=== PATIENT | male | born 1955 | race Caucasian/White ===

== ENCOUNTER 2018-08-05 00:12 | Inpatient (IN) | payer BC ==
[2014-06-30 09:50] VITALS: Ht 185.4 cm; Wt 95.3 kg
[2018-08-04 14:32] LABS: INR 0.96
[2018-08-05] VITALS (13 sets, daily range): BP systolic 108–150; BP diastolic 69–99
[~2018-08-05] VITALS: Ht 185.4 cm; Wt 95.3 kg
[~2018-08-05 00:12] MED LIST: ASPI-757 PO; IBUP200C74 PO; LISI-353 PO
--- NOTE | 2018-08-05 07:34 | LEVENE H&P ---
DATE OF ADMISSION: August 05, 2018 IDENTIFICATION/CHIEF COMPLAINT The patient is a 62-year-old gentleman with a chief complaint of right knee pain. HISTORY OF PRESENT ILLNESS The patient has a long standing history of knee arthritis, progressively painful and debilitating, refractory to conservative care. Surgery is indicated to relieve symptoms after failure of nonoperative measures. PAST SURGICAL HISTORY Contralateral knee replacement. ALLERGIES No known drug allergies. CURRENT MEDICATIONS Lisinopril 50 mg p.o. q day. FAMILY HISTORY Non-contributory. SOCIAL HISTORY Negative for tobacco use, drinks alcohol about 4 days per week on a social basis, denies abuse. REVIEW OF SYSTEMS Negative. PHYSICAL EXAMINATION GENERAL: This is a healthy male. HEENT: Normocephalic, atraumatic. Extraocular muscles intact. NECK: Supple, non-tender. LUNGS: Clear to auscultation bilaterally. HEART: Regular rate and rhythm. ABDOMEN: Benign. BACK: Non-tender without deformity. ORTHOPEDIC EXAMINATION The right knee has crepitus noted. He has an effusion present. Gross stability is good. He is stiff at end range. Extensor function is intact. Skin condition is good. Calf is nontender. Neurovascular function is intact. RADIOGRAPHS Demonstrate endstage knee arthritis. ASSESSMENT Right knee endstage degenerative joint disease, progressively painful and debilitating, refractory to conservative care. PLAN Per patient request, we are going to proceed with total knee arthroplasty. The nature of the procedure, the risks, benefits, the anticipated rehabilitative course were reviewed. Risks include but are not limited to , major medical or anesthetic complication, infection, neurovascular injury, blood transfusion, stiffness, scarring, fracture, tendon rupture, instability, implant loosening, migration or failure, need for additional surgery and other unforeseen. He understands and wishes to proceed. A signed permit is placed in the chart. No guarantees are given or implied. J[facility] MEDICAL CENTERLuciano
[2018-08-05] MEDS ORDERED: cloNIDine EPIDUR INJ 100MCG/ML 40 MCG, ROPIVACAINE 0.5% 20 ML VIAL 25 ML, EPINEPHrine H... INJ ONE (10:00)
[2018-08-05] MEDS ORDERED: ceFAZolin(*) 2GM/D5W 50ML 50 ML IVPB ONE (10:00)
[2018-08-05] MEDS ORDERED: BACITRACIN 50000 UNIT/VIAL 100,000 UNIT in NS 0.9% 3000 ML IRRIGATION BAG 3,000 ML IR ONE (10:00)
[2018-08-05] MEDS ORDERED: MIDAZOLAM 2 MG/2 ML VIAL IVP PRN (10:00)
[2018-08-05] MEDS ORDERED: LIDOCAINE/SOD BICARB 8.4% SYR ID ONE (10:00)
[2018-08-05] MEDS ORDERED: TRANEXAMIC AC 1000 MG/10ML SDV 1,000 MG in DEXTROSE 5% 50 ML BAG 50 ML IV ONE (10:00)
[2018-08-05] MEDS ORDERED: NORMOSOL R SOLN(*) 1000 ML BAG 1,000 ML IV PRN ×2 (10:00→18:45)
[2018-08-05] MEDS ORDERED: FAMOTIDINE 20 MG TAB PO ONE (10:00)
[2018-08-05] MEDS ORDERED: ACETAMINOPHEN 500 MG TAB PO ONE (10:00)
[2018-08-05] MEDS ORDERED: PREGABALIN 150 MG CAPSULE PO ONE (10:00)
[2018-08-05] MEDS ORDERED: CELECOXIB 200 MG CAP PO ONE (10:00)
[2018-08-05] MEDS ORDERED: DEXAMETHASONE SOD 4 MG/ML VIAL ONE (13:22)
[2018-08-05] MEDS ORDERED: fentaNYL CITR 100 MCG/2 ML AMP ONE (13:22)
[2018-08-05] MEDS ORDERED: PROPOFOL EMUL(*) 10MG/ML 20 ML 20 ML ONE (13:22)
[2018-08-05] MEDS ORDERED: ONDANSETRON 4 MG/2 ML VIAL ONE (13:22)
[2018-08-05] MEDS ORDERED: LIDOCAINE MPF 1% 5 ML VIAL ONE (13:22)
[2018-08-05] MEDS ORDERED: KETAMINE HCL 200 MG/20 ML MDV ONE (13:27)
[2018-08-05] MEDS ORDERED: LACTATED RINGER 3000 ML BAG IR ONE (16:54)
--- NOTE | 2018-08-05 17:32 | RADIOLOGY IMAGING REPORT ---
FACILITY: [facility] PATIENT NAME: Garrett Camilo : 1955 MR: [id number] V: [id number] EXAM DATE: ORDERING PHYSICIAN: SULEMA ABREU TECHNOLOGIST: [place] [facility] [place] Garrett Camilo : 1955 Visit/Account:[id number] Date of Sevice: 08/05/2018 Examination: KNEE LIMITED RIGHT Comparison: None. History: Post right knee arthroplasty. Findings: Normal postoperative alignment of the right total knee arthroplasty. No periprosthetic frac ture. Expected postoperative change in the soft tissues. IMPRESSION: Expected postoperative appearance of the right total knee arthroplasty. Report Dictated By: Vicente Eddy MD at 08/05/2018 5:28 PM Report E-Signed By: Vicente Eddy MD at 08/05/2018 5:29 PM WSN:[id number]
[2018-08-05] MEDS ORDERED: APAP/HYDROCODONE 325/7.5 TAB ONE (18:16)
[2018-08-05] MEDS ORDERED: APAP/HYDROCODONE 325/7.5 TAB PO PRN (18:45)
[2018-08-05] MEDS ORDERED: ACETAMINOPHEN 325 MG TAB PO PRN (18:45)
[2018-08-05] MEDS ORDERED: DIAZEPAM 5 MG TAB PO PRN (18:45)
[2018-08-05] MEDS ORDERED: MAGNESIUM HYDROXIDE* 30ML UDCP PO PRN (18:45)
[2018-08-05] MEDS ORDERED: FLUSH 10 ML SYR IVP PRN (18:45)
[2018-08-05] MEDS ORDERED: BENZOCAINE/MENTHOL 1 EACH LOZG PO PRN (18:45)
[2018-08-05] MEDS ORDERED: PROMETHAZINE 25 MG/ML 1 ML AMP IVP PRN (18:45)
[2018-08-05] MEDS ORDERED: BISACODYL 10 MG SUPP PR PRN (18:45)
[2018-08-05] MEDS ORDERED: diphenhydrAMINE 25 MG CAP PO PRN (18:45)
[2018-08-05] MEDS ORDERED: ZOLPIDEM TARTRATE 5 MG TAB PO PRN (18:45)
[2018-08-05] MEDS ORDERED: diphenhydrAMINE 50 MG/ML VIAL IVP PRN (18:45)
--- NOTE | 2018-08-05 20:00 | Hospitalist Progress Note ---
Subjective Progress Notes Subjective No CV/pulmonary issues. 1800cc of crystalloid, TXA, dexamethasone and ephedrine given intra-op. Physical Exam Vital Signs Date Time Temp Pulse Resp B/P (MAP) Pulse Ox O2 Delivery O2 Flow Rate FiO2 08/05/18 18:34 97.7 81 20 149/93 (111) 96 Nasal Cannula 2.0 General Appearance: Alert, Awake, No Acute Distress Cardiovascular: Regular Rate and Rhythm Respiratory: Clear to Auscultation Extremities: No Edema Assessment and Plan Problems: (1) S/P total knee replacement Status: Acute Assessment & Plan: No CV/pulmonary issues. No history of DVT/PE. He will be on ASA 325mg a day for 30 days after surgery for blood clot prevention. (2) Hypertension Status: Chronic Assessment & Plan: He is chronically on Lisinopril/HCTZ, which will be continued with hold parameters for each drug. Problem Qualifiers (1) S/P total knee replacement: Laterality: right Qualified Codes: Z96.651 - Presence of right artificial knee joint KAY OLIVA MD Aug 05, 2018 20:00
[2018-08-05] MEDS ORDERED: NS(*) 0.9% 250 ML BAG 250 ML in NS(*) 0.9% 250 ML BAG 250 ML IV PRN (22:30)
[2018-08-05] MEDS ORDERED: NS(*) 0.9% 250 ML BAG 250 ML ONE (22:58)
[2018-08-05] MEDS: ceFAZolin(*) 1 GM VIAL 1 GM in NS(*) 0.9% 100 ML ADDVANT BAG 100 ML IVPB SCH (22:59)
[2018-08-06 02:57] VITALS: BP 116/70
[2018-08-06] MEDS: ceFAZolin(*) 1 GM VIAL 1 GM in NS(*) 0.9% 100 ML ADDVANT BAG 100 ML IVPB SCH (06:31)
--- NOTE | 2018-08-06 06:50 | Hospitalist Progress Note ---
Subjective Progress Notes Subjective No cp/sob. Physical Exam Vital Signs Date Time Temp Pulse Resp B/P (MAP) Pulse Ox O2 Delivery O2 Flow Rate FiO2 08/06/18 06:21 89 08/06/18 02:57 99.0 72 12 116/70 (85) Room Air 08/05/18 23:16 2.0 Intake and Output 08/06/18 06:59 Intake Total 6950 ml Output Total 475 ml Balance 6475 ml Intake Oral 2850 ml IV Total 2100 ml Other 2000 ml Output Urine Total 475 ml # Voids 0 General Appearance: Alert, Awake, No Acute Distress Assessment and Plan Problems: (1) S/P total knee replacement Status: Acute Assessment & Plan: No CV/pulmonary issues. No history of DVT/PE. He will be on ASA 325mg a day for 30 days after surgery for blood clot prevention. (2) Hypertension Status: Chronic Assessment & Plan: He is chronically on Lisinopril/HCTZ, which will be continued with hold parameters for each drug. Exam Sepsis Risk: No Definite Risk Problem Qualifiers (1) S/P total knee replacement: Laterality: right Qualified Codes: Z96.651 - Presence of right artificial knee joint KAY OLIVA MD Aug 06, 2018 06:50
[2018-08-06 07:12] VITALS: BP 122/70
[2018-08-06] MEDS ORDERED: HYDR-4308 PO (07:36)
[2018-08-06] MEDS ORDERED: CELECOXIB 200 MG CAP PO SCH (08:00)
[2018-08-06] MEDS ORDERED: ASPI81TA94 PO (08:07)
--- NOTE | 2018-08-06 08:49 | LEVENE TKA ---
EVENT DATE: August 05, 2018 SURGEON: Darnell Woodruff MD ANESTHESIOLOGIST: [*] ANESTHESIA: General plus spinal. HEALTH SCIENCES MANAGER: Marcial Mena PA-C PREOPERATIVE DIAGNOSIS Right knee degenerative joint disease (DJD). POSTOPERATIVE DIAGNOSIS Right knee degenerative joint disease (DJD). PROCEDURE PERFORMED Right total knee arthroplasty. ESTIMATED BLOOD LOSS Minimal. DRAINS None. SPECIMENS None. COMPLICATIONS None apparent. TOURNIQUET TIME 61 minutes. IMPLANTS USED Alejandra Triathlon knee system, 5 PS femur, 6 standard tibial baseplate, 36 mm universal symmetric all polyethylene patella button, 11 mm PS tibial tray liner polyethylene x3. INDICATIONS Fernando is a 63-year-old gentleman with intractable pain related to end-stage knee arthritis. Surgery is indicated to relieve symptoms after failure of nonoperative measures. DESCRIPTION OF PROCEDURE The patient was taken to the operating room and placed supine on the operating table. General anesthesia was induced after spinal block was administered by the anesthesiologist. Antibiotics TXA are administered IV. The right lower extremity was prepped and draped in the usual sterile fashion for knee arthroplasty. The limb was exsanguinated with an Esmarch bandage. The tourniquet was inflated to 250 mmHg. A midline longitudinal incision was made and carried down through the skin and subcutaneous tissue to the extensor mechanism. A full-thickness flap was developed far enough medially to allow medial parapatellar arthrotomy to be performed. The patella was everted. The knee was brought into a flexed position. The fat pad, anterior horns of the menisci and cruciate ligaments were debrided. Subperiosteal medial release was initiated in titrated fashion. A step drill was used to enter the distal femur. A 10-inch long alignment guide was used to engage the isthmus. Cut is set for 5 degrees of valgus, anatomic axis. A 10 mm resection block was applied, pinned and cuts made with an oscillating saw. The AP sizing guide was applied to the distal femoral cut, positioned for 3 degrees external rotation relative to the posterior condyles. The size 5 was optimal without risk of notching. The four-in-one cutting block was applied. Anterior, posterior, posterior chamfer and anterior chamfer cuts were made respectively. A PS block was applied and centered mediolateral and the bone was resected for the box. The trial femur has nice fit. Attention was turned to tibial preparation. The extramedullary guide was applied and positioned for varus, valgus, posterior slope and rotation. This was set to take 9 mm from the relatively intact lateral tibial plateau. It was brought down a couple of millimeters to ensure an adequate cut block. It was pinned. Extramedullary alignment check is made. Cuts made with an oscillating saw. Additional medial release was required to balance the gaps after osteophyte removal. Rectangular and balance gaps were achieved. The size 6 tibial baseplate provides optimum bone coverage without soft tissue overhang. This was inserted along with a trial liner and trial femur. The was brought into full extension. The patella was taken from a starting thickness of 24 to a residual of 14 with a patellar clamp and oscillating saw. A 36 provides optimal bony coverage without soft tissue overhang. The lug holes were drilled. The patella tracks nicely with the no-touch technique. Final tibial preparation consisted of assuring appropriate rotational and translational position of the component. Box is reamed. Fin is punched. Surfaces are lavaged. A mix of polymethylmethacrylate was made and the components were cemented in a single stage. Once the cement was fully polymerized, tourniquet was deflated, hemostasis assured. The wound was copiously lavaged. The 11 PS tibial tray liner fills up the gap ideally, allowing the knee to drop to full extension without hyperextension, providing optimal stability and soft tissue tension. The tray was lavaged and dried. The actual liner was locked into the baseplate. The joint was reduced. The arthrotomy was closed in flexion with #2 Ethibond, subcutaneous with 3-0 Vicryl and skin with surgical pasha. Xeroform was applied followed by a dry, sterile dressing and a compression wrap. The patient was awakened from the anesthesia and taken to the recovery room in stable condition, having tolerated the procedure well. PLAN Standard TKA rehab protocol. SRID
[2018-08-06] MEDS ORDERED: ASPIRIN 325 MG TAB PO SCH (09:00)
[2018-08-06] MEDS ORDERED: LISINOPRIL 20 MG TAB PO SCH (09:00)
[2018-08-06] MEDS ORDERED: HYDROCHLOROTHIAZIDE 25 MG TAB PO SCH (09:00)
[2018-08-06 10:36] VITALS: BP 123/77
== END 2018-08-06 11:16 | disposition home or self-care (01) | DRG 470 ==
LOC: OR 00:12 → MED 18:30 → OBSVTOIN 18:30
PROVIDERS: ADMIT Orthopaedic Surgery; ATTEND Orthopaedic Surgery
PROC: 0SRC0J9 Replacement of Right Knee Joint with Synthetic Substitute, Cemented, Open Approach (ICD-10-PCS; principal; 2018-08-05 15:03)
DX: M17.11 Unilateral primary osteoarthritis, right knee (principal); I10 Essential (primary) hypertension; Z96.652 Presence of left artificial knee joint
CPT/HCPCS: 36415; 85610; 86850; 86900; 86901; 97161; C1713; C1776; G0378; J0171; J0690; J0735; J1100; J1885; J2001; J2250; J2405; J2704; J2795; J3010; J3490; J7050; J7060